=== PATIENT | male | born 1990 | race Caucasian/White ===

== ENCOUNTER → 2024-03-12 | Emergency (ER) | payer BC ==
[~2024-03-12] VITALS: Ht 195.6 cm; Wt 195.0 kg
[2024-03-12 15:54] VITALS: BP 102/69
[2024-03-12 16:20] VITALS: BP 102/69
== END | disposition home or self-care (01) | DRG 950 ==
LOC: ED 15:45 → MS2 03-13 22:41
DX: Z45.2 Encounter for adjustment and management of vascular access device (principal); E11.621 Type 2 diabetes mellitus with foot ulcer; L97.529 Non-pressure chronic ulcer of other part of left foot with unspecified severity; E11.40 Type 2 diabetes mellitus with diabetic neuropathy, unspecified; I10 Essential (primary) hypertension